=== PATIENT | male | born 1980 | race Two or more races ===

== ENCOUNTER 2017-06-27 09:31 | Emergency (ER) | payer OTHER ==
[~2017-06-27] VITALS: Ht 172.7 cm; Wt 137.5 kg
[~2017-06-27 09:31] MED LIST: OMEP-110 PO
[2017-06-27] MEDS ORDERED: SODIUM CHLORIDE 0.9% 1,000 ML IV ONE (10:12)
[2017-06-27] MEDS ORDERED: HYDROmorphone 1 MG/ML, 1ML ONE (10:17)
[2017-06-27] MEDS ORDERED: ONDANSETRON 2MG/ML, 2ML ONE (10:17)
[2017-06-27] MEDS ORDERED: SODIUM CHLORIDE 0.9% 1,000ML IVBOLUS ONE (10:30)
[2017-06-27] MEDS ORDERED: SODIUM CHLORIDE FLUSH 10ML SYR IVF ONE (10:30)
[2017-06-27] MEDS ORDERED: HYDROmorphone 1 MG/ML, 1ML IVPush PRN (10:30)
[2017-06-27] MEDS ORDERED: ONDANSETRON 2MG/ML, 2ML IVPush ONE (10:30)
[2017-06-27 10:50] LABS: HEMATOCRIT 46.3 % (39.2-51.8); WHITE BLOOD COUNT 9.7 x10^3/uL (3.4-10)
[2017-06-27 11:03] LABS: ASPARTATE AMINO TRANSFERASE 19 U/L (15-37); BLOOD UREA NITROGEN 9 mg/dL (7-18)
[2017-06-27 13:21] VITALS: BP 119/68
== END 2017-06-27 13:23 | disposition home or self-care (01) ==
LOC: ED 10:13
DX: R10.10 Upper abdominal pain, unspecified (principal); R10.2 Pelvic and perineal pain; R11.0 Nausea
CPT/HCPCS: 36415; 74176; 80053; 81003; 83605; 83690; 85025; 96361; 96374; 96375; 99285; J1170; J2405; J7030